=== PATIENT | male | born 1965 | race Caucasian/White ===

== ENCOUNTER 2018-12-04 14:45 | Emergency (ER) | payer BC | END 2018-12-04 15:52 | disposition left against medical advice (07) | LOC: ER 14:45 | DX: Z53.20 Procedure and treatment not carried out because of patient's decision for unspecified reasons (principal) ==

== ENCOUNTER 2018-12-05 12:51 | Emergency (ER) | payer BC ==
[2018-12-05] MEDS ORDERED: CLINDAMYCIN 600MG/50ML PREMIX 600 MG/50 ML BAG IVPB ONE (14:58)
[2018-12-05 15:32] LABS: ABSOLUTE NEUTROPHIL COUNT 5.78; BASO % 0.4 % (0-6); EOS % 0.5 % (0-6); GRAN % 75.9 % (47-80); HEMATOCRIT 44.3 % (42.0-52.0); HEMOGLOBIN 14.3 gm/dl (14.0-18.0); LYMPH % 16.2 % (16-45); MEAN CELL VOLUME 89.7 fl (81-97); MEAN CORPUSCULAR HEMOGLOBIN 28.9 pg (27-33); MEAN CORPUSCULAR HGB CONC 32.3 g/dl (32-36); MEAN PLATELET VOLUME 9.2 fl (7.4-10.4); PLATELET COUNT 322 K/uL (130-400); RED BLOOD COUNT 4.94 M/uL (4.40-5.70); RED CELL DISTRIBUTION WIDTH 13.5 % (11.5-14.5); WHITE BLOOD COUNT W/O DIFF 7.6 K/uL (4.2-12.2)
--- NOTE | 2018-12-05 15:40 | Emergency Department Record ---
History of Present Illness - General Chief complaint: Abscess Stated complaint: SORE ON R THIGH Time Seen by Provider: 12/05/18 13:29 Source: Patient Mode of Arrival: Ambulatory Limitations: No limitations - History of Present Illness Initial comments: pt comes in w an infection on his thigh that is getting worse. he has eczema. he saw dr flores 3 days ago and was started on keflex. it has gotten worse. now it has drained a blackish substance and has a black center and the red has spread beyond the previously drawn lines MD complaint: Abscess/boil Onset/Timin -: Week(s) Severity scale (1-10): 8 Consistency: Intermittent Worsens with: Palpation Context: None Associated symptoms: Denies other symptoms Treatments Prior to Arrival: None - Related Data Home Medications Medication Instructions Recorded Confirmed Last Taken Cephalexin [Keflex] 500 mg PO QID 12/05/18 12/05/18 12/05/18 Phentermine HCl 1 tab PO DAILY 12/05/18 12/05/18 Unknown Tadalafil 1 tab PO QHS 12/05/18 12/05/18 Unknown Trazodone HCl 1 tab PO QHS 12/05/18 12/05/18 12/05/18 Previous Rx's Medication Instructions Recorded Clindamycin HCl [Cleocin HCl] 150 mg PO Q6H #40 cap 12/05/18 Clindamycin HCl [Cleocin HCl] 300 mg PO Q6HR #40 capsule 12/05/18 Travel Screening - Travel/Exposure Within Last 30 Days Have you traveled within the last 30 days?: No - Travel/Exposure Within Last Year Have you traveled outside the [place] in the last year?: No - Additonal Travel Details Have you been exposed to anyone with a communicable illness?: No - Travel Symptoms Symptom Screening: None Review of Systems Reviewed: No additional complaints except as noted below Constitutional: Reports: As per HPI. Denies: Chills, Fever, Malaise, Night sweats, Weakness, Weight change Eyes: Reports: As per HPI. Denies: Eye discharge, Eye pain, Photophobia, Vision change ENT: Reports: As per HPI. Denies: Congestion, Dental pain, Ear pain, Epistaxis, Hearing loss, Throat pain Respiratory: Reports: As per HPI. Denies: Cough, Dyspnea, Hemoptysis, Stridor, Wheezes Cardiovascular: Reports: As per HPI. Denies: Arrhythmia, Chest pain, Dyspnea on exertion, Edema, Murmurs, Orthopnea, Palpitations, Paroxysmal nocturnal dyspnea, Rheumatic Fever, Syncope Endocrine: Reports: As per HPI. Denies: Fatigue, Heat or cold intolerance, Polydipsia, Polyuria Gastrointestinal: Reports: As per HPI. Denies: Abdominal pain, Constipation, Diarrhea, Hematemesis, Hematochezia, Melena, Nausea, Vomiting Genitourinary: Reports: As per HPI. Denies: Dysuria, Frequency, Hematuria, Incontinence, Retention, Testicular pain, Testicular mass, Urgency Musculoskeletal: Reports: As per HPI. Denies: Arthralgia, Back pain, Gout, Joint swelling, Myalgia, Neck pain Skin: Reports: As per HPI. Denies: Bruising, Change in color, Change in hair/nails, Lesions, Pruritus, Rash Neurological: Reports: As per HPI. Denies: Abnormal gait, Confusion, Headache, Numbness, Paresthesias, Seizure, Tingling, Tremors, Vertigo, Weakness Psychiatric: Reports: As per HPI. Denies: Anxiety, Auditory hallucinations, Depression, Homicidal thoughts, Suicidal thoughts, Visual hallucinations Hematological/Lymphatic: Reports: As per HPI. Denies: Anemia, Blood Clots, Easy bleeding, Easy bruising, Swollen glands Past Medical History - SOCIAL HISTORY Smoking Status: Never smoker Alcohol Use: Occasional Drug Use: None - RESPIRATORY Hx Respiratory Disorders: No - CARDIOVASCULAR Hx Cardio Disorders: No - NEURO Hx Neuro Disorders: No - GI Hx GI Disorders: No - Hx Genitourinary Disorders: No - ENDOCRINE Hx Endocrine Disorders: No - MUSCULOSKELETAL Hx Musculoskeletal Disorders: No - PSYCH Hx Psych Problems: No - HEMATOLOGY/ONCOLOGY Hx Hematology/Oncology Disorders: No Family Medical History Any Significant Family History?: No Physical Exam - General General Appearance: Alert, Oriented x3, Cooperative, No acute distress - Head Head exam: Normal inspection - Eye Eye exam: Normal appearance, PERRL, EOMI Pupils: Normal accommodation - ENT ENT exam: Normal exam, Mucous membranes moist, Normal external ear exam, Normal orophraynx Ear exam: Normal external inspection. negative: External canal tenderness Nasal Exam: Normal inspection. negative: Discharge, Sinus tenderness Mouth exam: Normal external inspection, Tongue normal Teeth exam: Normal inspection. negative: Dental caries Throat exam: Normal inspection. negative: Tonsillar erythema, Tonsillar exudate - Neck Neck exam: Normal inspection, Full ROM. negative: Tenderness - Respiratory Respiratory exam: Normal lung sounds bilaterally. negative: Respiratory distress - Cardiovascular Cardiovascular Exam: Regular rate, Normal rhythm, Normal heart sounds - GI/Abdominal GI/Abdominal exam: Soft, Normal bowel sounds. negative: Tenderness - Rectal Rectal exam: Deferred - exam: Deferred - Extremities Extremities exam: Normal inspection, Full ROM, Normal capillary refill. negat rashad: Tenderness Image of Full Body: 1 - erythema 2 - black center - Back Back exam: Reports: Normal inspection, Full ROM. Denies: Muscle spasm, Rash noted, Tenderness - Neurological Neurological exam: Alert, CN II-XII intact, Normal gait, Oriented X3 - Psychiatric Psychiatric exam: Normal affect, Normal mood - Skin Skin exam: Dry, Intact, Normal color, Warm Course Vital Signs 12/05/18 13:14 Temperature 98.3 F Pulse Rate 89 Respiratory 18 Rate Blood Pressure 126/85 Pulse Ox 97 Medical Decision Making - Lab Data Result diagrams: 12/05/18 15:07 Lab Results 12/05/18 Range/Units 15:07 WBC 7.6 (4.2-12.2) K/uL RBC 4.94 (4.40-5.70) M/uL Hgb 14.3 (14.0-18.0) gm/dl Hct 44.3 (42.0-52.0) % MCV 89.7 (81-97) fl MCH 28.9 (27-33) pg MCHC 32.3 (32-36) g/dl RDW 13.5 (11.5-14.5) % Plt Count 322 (130-400) K/uL MPV 9.2 (7.4-10.4) fl Gran % 75.9 (47-80) % Lymphocytes % 16.2 (16-45) % Monocytes % 7.0 (0-9) % Eosinophils % 0.5 (0-6) % Basophils % 0.4 (0-6) % Absolute Neutrophils 5.78 Disposition Disposition: Discharge Clinical Impression: Abscess or cellulitis of thigh Disposition: Home, Self-Care Condition: (1) Good Instructions: Cellulitis (ED), Abscess (ED) Additional Instructions: follow up with family doctor. return sooner if worse. recheck tomorrow if worse Prescriptions: Clindamycin HCl [Cleocin HCl] 300 mg PO Q6HR #40 capsule Clindamycin HCl [Cleocin HCl] 150 mg PO Q6H #40 cap Forms: Patient Portal Access Quality - Quality Measures Quality Measures: N/A - Blood Pressure Screening Does Patient Have Any of the Following: No Blood Pressure Classification: Pre-Hypertensive BP Reading Systolic Measurement: 126 Diastolic Measurement: 85 Screening for High Blood Pressure: < Pre-Hypertensive BP, F/U Documented > [G8950] Pre-Hypertensive Follow-up Interventions: Follow-up with rescreen every year.
== END 2018-12-05 16:26 | disposition home or self-care (01) ==
LOC: ER 12:51
DX: L02.415 Cutaneous abscess of right lower limb (principal)
CPT/HCPCS: 85025; 96365; 99284